=== PATIENT | female | born 1955 | race Caucasian/White ===

== ENCOUNTER 2022-04-05 11:25 | Inpatient (IN) | payer MEDICARE, OTHER ==
[2022-04-05 13:47] LABS: VENOUS BASE EXCESS -4.2 mmol/L (-2-2); VENOUS PCO2 42.9 mmHg (38-52); VENOUS PH 7.323 (7.310-7.410)
[2022-04-05 13:51] LABS: BASO % 0.8 % (0-2.0); EOS % 1.2 % (0-4.5); HEMATOCRIT 41.9 % (32.4-45.2); HEMOGLOBIN 13.6 GM/dL (10.7-15.3); MCH 27.9 pg (25.7-33.7); MCHC 32.5 g/dl (32.0-36.0); MEAN CELL VOLUME 85.7 fl (80-96); MEAN PLT VOLUME 7.1 fl (7.5-11.1); MONO % 6.1 % (3.8-10.2); NEUT % 56.9 % (42.8-82.8); PLATELET COUNT 297 10^3/uL (134-434); RBC 4.89 M/mm3 (3.60-5.2); RDW 14.3 % (11.6-15.6); WHITE BLOOD COUNT 7.4 K/mm3 (4.0-10.0)
[2022-04-05 13:58] LABS: INR 0.97 (0.83-1.09); PROTHROMBIN TIME (PATIENT) 11.2 SEC (9.7-13.0)
[2022-04-05 14:01] LABS: ACTIVATED PTT 31.6 SECONDS (25.2-36.5)
[2022-04-05 14:18] LABS: LACTIC ACID 2.3 mmol/L (0.4-2.0)
[2022-04-05 14:28] LABS: ALBUMIN 3.8 g/dl (3.4-5.0)
[2022-04-05 14:29] LABS: BLOOD UREA NITROGEN 13.3 mg/dL (7-18); CALCIUM 9.5 mg/dL (8.5-10.1)
[2022-04-05 14:35] LABS: CREATININE 0.7 mg/dL (0.55-1.3)
[2022-04-05 14:37] LABS: BILIRUBIN,TOTAL 0.4 mg/dL (0.2-1); TOT PROT 7.5 g/dl (6.4-8.2)
[2022-04-05] MEDS ORDERED: LACTATED RINGERS SOLUTION 1000 ML INFUS.BAG IV ONE (14:43)
[2022-04-05 16:30] LABS: EPI CELLS >36 /uL (0-25.1); HYALINE CASTS 6 /uL (0-3.1); PH,URINE 5.5 (5.0-8.0); URINE APPEARANCE CLEAR; URINE BACTERIA 32 /uL (0-1359); URINE BILIRUBIN NEGATIVE (NEGATIVE); URINE COLOR YELLOW; URINE GLUCOSE (UA) 3+ (NEGATIVE); URINE KETONE NEGATIVE (NEGATIVE); URINE LEUK ESTERASE 1+ (NEGATIVE); URINE NITRITE NEGATIVE (NEGATIVE); URINE PROTEIN NEGATIVE (NEGATIVE); URINE RBC 16 /uL (0-23.9); URINE UROBILINOGEN 0.2 mg/dL (0.2-1.0); URINE WBC 331 /uL (0-25.8)
[2022-04-05] MEDS ORDERED: ACETAMINOPHEN 325 MG TABLET (FP) PO PRN (16:58)
[2022-04-05] MEDS ORDERED: CEFTRIAXONE 1 GM/50 ML BAG ONE (17:44)
[2022-04-05] MEDS: CEFTRIAXONE 1 GM in DEXTROSE 5%-WATER - 50 ML IVPB SCH (17:59)
[2022-04-05] MEDS ORDERED: PATIENT'S OWN MEDICATION (NON-FORMULARY) (Glyburide/Metformin Hcl [Glucovance 5-500 Mg Tab PO SCH (22:00)
[2022-04-05] MEDS: INSULIN SLIDING SCALE (NOVOLOG) 1 VIAL SQ SCH (22:30)
[2022-04-05] MEDS ORDERED: ATORVASTATIN CA 20 MG TABLET (FP) ONE (22:33)
[2022-04-05] MEDS ORDERED: HEPARIN NA (PORCINE) 5,000 UNITS/ML 1ML VIAL ONE (22:34)
[2022-04-05] MEDS: HEPARIN NA (PORCINE) 5,000 UNITS/ML 1ML VIAL SQ SCH (22:41)
[2022-04-05] MEDS: ATORVASTATIN CA 20 MG TABLET (FP) PO SCH (22:42)
[2022-04-06] MEDS: metFORMIN HCL 500 MG TABLET (FP) PO SCH ×2 (06:31→16:36)
[2022-04-06] MEDS: glyBURIDE 5 MG TABLET PO SCH ×2 (06:31→16:36)
[2022-04-06] MEDS: INSULIN SLIDING SCALE (NOVOLOG) 1 VIAL SQ SCH ×4 (06:36→22:21)
[2022-04-06 09:17] LABS: BASO % 0.9 % (0-2.0); EOS % 2.6 % (0-4.5); HEMATOCRIT 40.9 % (32.4-45.2); HEMOGLOBIN 13.8 GM/dL (10.7-15.3); MCH 28.7 pg (25.7-33.7); MCHC 33.7 g/dl (32.0-36.0); MEAN CELL VOLUME 85.1 fl (80-96); MEAN PLT VOLUME 7.1 fl (7.5-11.1); MONO % 7.2 % (3.8-10.2); NEUT % 50.3 % (42.8-82.8); PLATELET COUNT 305 10^3/uL (134-434); RDW 14.2 % (11.6-15.6); WHITE BLOOD COUNT 6.8 K/mm3 (4.0-10.0)
[2022-04-06] MEDS: CEFTRIAXONE 1 GM in DEXTROSE 5%-WATER - 50 ML IVPB SCH (09:22)
[2022-04-06] MEDS: HEPARIN NA (PORCINE) 5,000 UNITS/ML 1ML VIAL SQ SCH ×2 (09:22→22:21)
[2022-04-06] MEDS: LISINOPRIL 20 MG TABLET PO SCH (09:22)
[2022-04-06] MEDS: PANTOPRAZOLE 40 MG TABLET PO SCH (09:22)
[2022-04-06] MEDS: MULTIVITAMINS THER W-MINERALS COMBO TABLET (FP) PO SCH (09:22)
[2022-04-06 09:34] LABS: BLOOD UREA NITROGEN 6.5 mg/dL (7-18); CALCIUM 9.4 mg/dL (8.5-10.1)
[2022-04-06 09:37] LABS: ALBUMIN 3.9 g/dl (3.4-5.0); CREATININE 0.5 mg/dL (0.55-1.3)
[2022-04-06 09:39] LABS: BILIRUBIN,TOTAL 0.5 mg/dL (0.2-1); TOT PROT 7.8 g/dl (6.4-8.2)
[2022-04-06] MEDS: CALCIUM 250MG/VIT-D 125 UNITS 1 COMBO TABLET PO SCH (10:21)
[2022-04-06] MEDS: MEGESTROL ACETATE 400 MG/10 ML UNIT DOSE CUP PO SCH (12:36)
[2022-04-06 13:24] VITALS: BMI 17.9
[2022-04-06] MEDS: ATORVASTATIN CA 20 MG TABLET (FP) PO SCH (22:21)
[2022-04-07] MEDS: INSULIN SLIDING SCALE (NOVOLOG) 1 VIAL SQ SCH ×4 (08:03→23:25)
[2022-04-07] MEDS: glyBURIDE 5 MG TABLET PO SCH ×2 (08:24→16:32)
[2022-04-07] MEDS: metFORMIN HCL 500 MG TABLET (FP) PO SCH ×2 (08:24→16:32)
[2022-04-07] MEDS ORDERED: DEXTROSE 50%-WATER 25 GM/50 ML DISP.SYRIN IVPUSH ONE (09:30)
[2022-04-07] MEDS: CEFTRIAXONE 1 GM in DEXTROSE 5%-WATER - 50 ML IVPB SCH (09:59)
[2022-04-07] MEDS: MEGESTROL ACETATE 400 MG/10 ML UNIT DOSE CUP PO SCH (09:59)
[2022-04-07] MEDS: MULTIVITAMINS THER W-MINERALS COMBO TABLET (FP) PO SCH (09:59)
[2022-04-07] MEDS: ASPIRIN 81 MG CHEWABLE TABLETS PO SCH (09:59)
[2022-04-07] MEDS: HEPARIN NA (PORCINE) 5,000 UNITS/ML 1ML VIAL SQ SCH ×2 (09:59→23:24)
[2022-04-07] MEDS: LISINOPRIL 20 MG TABLET PO SCH (10:05)
[2022-04-07] MEDS: PANTOPRAZOLE 40 MG TABLET PO SCH (10:06)
[2022-04-07] MEDS: CALCIUM 250MG/VIT-D 125 UNITS 1 COMBO TABLET PO SCH (10:09)
[2022-04-07] MEDS ORDERED: DEXTROSE 50%-WATER 25 GM/50 ML DISP.SYRIN IVPUSH PRN (12:45)
[2022-04-07] MEDS: AMINO ACIDS 4.25%/D5W 1,000 ML IV SCH ×2 (13:11→23:35)
[2022-04-07] MEDS: ATORVASTATIN CA 20 MG TABLET (FP) PO SCH (23:25)
[2022-04-08] MEDS: INSULIN SLIDING SCALE (NOVOLOG) 1 VIAL SQ SCH ×4 (06:02→21:30)
[2022-04-08] MEDS: metFORMIN HCL 500 MG TABLET (FP) PO SCH ×2 (06:02→16:25)
[2022-04-08] MEDS: glyBURIDE 5 MG TABLET PO SCH ×2 (06:02→16:25)
[2022-04-08] MEDS: ASPIRIN 81 MG CHEWABLE TABLETS PO SCH (09:49)
[2022-04-08] MEDS: CALCIUM 250MG/VIT-D 125 UNITS 1 COMBO TABLET PO SCH (09:50)
[2022-04-08] MEDS: HEPARIN NA (PORCINE) 5,000 UNITS/ML 1ML VIAL SQ SCH ×2 (09:50→21:29)
[2022-04-08] MEDS: PANTOPRAZOLE 40 MG TABLET PO SCH (09:50)
[2022-04-08] MEDS: MEGESTROL ACETATE 400 MG/10 ML UNIT DOSE CUP PO SCH (09:50)
[2022-04-08] MEDS: MULTIVITAMINS THER W-MINERALS COMBO TABLET (FP) PO SCH (09:50)
[2022-04-08] MEDS: LISINOPRIL 20 MG TABLET PO SCH (09:50)
[2022-04-08] MEDS: AMINO ACIDS 4.25%/D5W 1,000 ML IV SCH (11:28)
[2022-04-08] MEDS: CEFTRIAXONE 1 GM in DEXTROSE 5%-WATER - 50 ML IVPB SCH (11:33)
[2022-04-08] MEDS: ATORVASTATIN CA 20 MG TABLET (FP) PO SCH (21:30)
[2022-04-09] MEDS: AMINO ACIDS 4.25%/D5W 1,000 ML IV SCH ×3 (00:11→23:55)
[2022-04-09] MEDS: metFORMIN HCL 500 MG TABLET (FP) PO SCH ×2 (06:08→17:24)
[2022-04-09] MEDS: glyBURIDE 5 MG TABLET PO SCH ×2 (06:08→17:24)
[2022-04-09] MEDS: INSULIN SLIDING SCALE (NOVOLOG) 1 VIAL SQ SCH ×4 (06:08→23:54)
[2022-04-09] MEDS: ASPIRIN 81 MG CHEWABLE TABLETS PO SCH (09:38)
[2022-04-09] MEDS: CALCIUM 250MG/VIT-D 125 UNITS 1 COMBO TABLET PO SCH (09:38)
[2022-04-09] MEDS: PANTOPRAZOLE 40 MG TABLET PO SCH (09:38)
[2022-04-09] MEDS: LISINOPRIL 20 MG TABLET PO SCH (09:38)
[2022-04-09] MEDS: MULTIVITAMINS THER W-MINERALS COMBO TABLET (FP) PO SCH (09:38)
[2022-04-09] MEDS: CEFTRIAXONE 1 GM in DEXTROSE 5%-WATER - 50 ML IVPB SCH (09:38)
[2022-04-09] MEDS: HEPARIN NA (PORCINE) 5,000 UNITS/ML 1ML VIAL SQ SCH ×2 (09:38→22:05)
[2022-04-09] MEDS: MEGESTROL ACETATE 400 MG/10 ML UNIT DOSE CUP PO SCH (09:39)
[2022-04-09] MEDS ORDERED: MIRTAZAPINE 15 MG TABLET (FP) PO SCH (22:00)
[2022-04-09] MEDS: ATORVASTATIN CA 20 MG TABLET (FP) PO SCH (22:05)
[2022-04-10] MEDS: glyBURIDE 5 MG TABLET PO SCH ×2 (06:53→17:07)
[2022-04-10] MEDS: metFORMIN HCL 500 MG TABLET (FP) PO SCH ×2 (06:53→17:07)
[2022-04-10] MEDS: INSULIN SLIDING SCALE (NOVOLOG) 1 VIAL SQ SCH ×4 (06:56→21:34)
[2022-04-10] MEDS: HEPARIN NA (PORCINE) 5,000 UNITS/ML 1ML VIAL SQ SCH ×2 (09:31→21:34)
[2022-04-10] MEDS: LISINOPRIL 20 MG TABLET PO SCH (09:31)
[2022-04-10] MEDS: PANTOPRAZOLE 40 MG TABLET PO SCH (09:31)
[2022-04-10] MEDS: MEGESTROL ACETATE 400 MG/10 ML UNIT DOSE CUP PO SCH (09:31)
[2022-04-10] MEDS: ASPIRIN 81 MG CHEWABLE TABLETS PO SCH (09:32)
[2022-04-10] MEDS: MULTIVITAMINS THER W-MINERALS COMBO TABLET (FP) PO SCH (09:32)
[2022-04-10] MEDS: CALCIUM 250MG/VIT-D 125 UNITS 1 COMBO TABLET PO SCH (09:36)
[2022-04-10] MEDS: AMINO ACIDS 4.25%/D5W 1,000 ML IV SCH (14:04)
[2022-04-10] MEDS: ATORVASTATIN CA 20 MG TABLET (FP) PO SCH (21:33)
[2022-04-10] MEDS: MIRTAZAPINE 15 MG TABLET (FP) PO SCH (21:34)
[2022-04-10 22:04] LABS: N-TERMINAL BNP 35.8 pg/ml (5-125)
[2022-04-11] MEDS: AMINO ACIDS 4.25%/D5W 1,000 ML IV SCH ×4 (00:40→23:24)
[2022-04-11] MEDS: glyBURIDE 5 MG TABLET PO SCH ×2 (06:08→17:03)
[2022-04-11] MEDS: INSULIN SLIDING SCALE (NOVOLOG) 1 VIAL SQ SCH ×4 (06:08→21:56)
[2022-04-11] MEDS: metFORMIN HCL 500 MG TABLET (FP) PO SCH ×2 (06:08→17:03)
[2022-04-11] MEDS: MEGESTROL ACETATE 400 MG/10 ML UNIT DOSE CUP PO SCH (09:42)
[2022-04-11] MEDS: ASPIRIN 81 MG CHEWABLE TABLETS PO SCH (09:43)
[2022-04-11] MEDS: CALCIUM 250MG/VIT-D 125 UNITS 1 COMBO TABLET PO SCH (09:43)
[2022-04-11] MEDS: MULTIVITAMINS THER W-MINERALS COMBO TABLET (FP) PO SCH (09:43)
[2022-04-11] MEDS: PANTOPRAZOLE 40 MG TABLET PO SCH (09:43)
[2022-04-11] MEDS: LISINOPRIL 20 MG TABLET PO SCH (09:43)
[2022-04-11] MEDS: HEPARIN NA (PORCINE) 5,000 UNITS/ML 1ML VIAL SQ SCH ×2 (09:43→21:54)
[2022-04-11] MEDS: CEFTRIAXONE 1 GM in DEXTROSE 5%-WATER - 50 ML IVPB SCH (17:03)
[2022-04-11] MEDS: MIRTAZAPINE 15 MG TABLET (FP) PO SCH (21:54)
[2022-04-11] MEDS: ATORVASTATIN CA 20 MG TABLET (FP) PO SCH (21:54)
[2022-04-12] MEDS: AMINO ACIDS 4.25%/D5W 1,000 ML IV SCH ×2 (03:36→20:32)
[2022-04-12] MEDS: metFORMIN HCL 500 MG TABLET (FP) PO SCH ×2 (06:23→16:44)
[2022-04-12] MEDS: glyBURIDE 5 MG TABLET PO SCH ×2 (06:23→16:45)
[2022-04-12] MEDS: INSULIN SLIDING SCALE (NOVOLOG) 1 VIAL SQ SCH ×4 (06:24→21:11)
[2022-04-12 08:59] LABS: CALCIUM 9.1 mg/dL (8.5-10.1)
[2022-04-12 09:03] LABS: CREATININE 0.7 mg/dL (0.55-1.3)
[2022-04-12 09:09] LABS: BLOOD UREA NITROGEN 36.2 mg/dL (7-18)
[2022-04-12] MEDS: PANTOPRAZOLE 40 MG TABLET PO SCH (10:30)
[2022-04-12] MEDS: HEPARIN NA (PORCINE) 5,000 UNITS/ML 1ML VIAL SQ SCH ×2 (10:30→21:11)
[2022-04-12] MEDS: ASPIRIN 81 MG CHEWABLE TABLETS PO SCH (10:30)
[2022-04-12] MEDS: MULTIVITAMINS THER W-MINERALS COMBO TABLET (FP) PO SCH (10:30)
[2022-04-12] MEDS: MEGESTROL ACETATE 400 MG/10 ML UNIT DOSE CUP PO SCH (10:30)
[2022-04-12] MEDS: CEFTRIAXONE 1 GM in DEXTROSE 5%-WATER - 50 ML IVPB SCH (10:30)
[2022-04-12] MEDS: CALCIUM 250MG/VIT-D 125 UNITS 1 COMBO TABLET PO SCH (10:31)
[2022-04-12] MEDS: LISINOPRIL 20 MG TABLET PO SCH (10:31)
[2022-04-12] MEDS: LEVOTHYROXINE NA 75 MCG TABLET (FP) PO SCH (11:24)
[2022-04-12] MEDS: MIRTAZAPINE 15 MG TABLET (FP) PO SCH (21:10)
[2022-04-12] MEDS: ATORVASTATIN CA 20 MG TABLET (FP) PO SCH (21:10)
[2022-04-13] MEDS: LEVOTHYROXINE NA 75 MCG TABLET (FP) PO SCH (06:18)
[2022-04-13] MEDS: glyBURIDE 5 MG TABLET PO SCH ×2 (06:18→16:41)
[2022-04-13] MEDS: metFORMIN HCL 500 MG TABLET (FP) PO SCH ×2 (06:18→16:41)
[2022-04-13] MEDS: INSULIN SLIDING SCALE (NOVOLOG) 1 VIAL SQ SCH ×3 (06:40→16:37)
[2022-04-13] MEDS: LISINOPRIL 20 MG TABLET PO SCH ×2 (10:14→10:21)
[2022-04-13] MEDS: MEGESTROL ACETATE 400 MG/10 ML UNIT DOSE CUP PO SCH (10:14)
[2022-04-13] MEDS: MULTIVITAMINS THER W-MINERALS COMBO TABLET (FP) PO SCH (10:15)
[2022-04-13] MEDS: PANTOPRAZOLE 40 MG TABLET PO SCH (10:15)
[2022-04-13] MEDS: HEPARIN NA (PORCINE) 5,000 UNITS/ML 1ML VIAL SQ SCH (10:15)
[2022-04-13] MEDS: ASPIRIN 81 MG CHEWABLE TABLETS PO SCH (10:15)
[2022-04-13] MEDS: CALCIUM 250MG/VIT-D 125 UNITS 1 COMBO TABLET PO SCH (10:45)
[2022-04-13] MEDS ORDERED: DEXTROSE 50%-WATER 25 GM/50 ML DISP.SYRIN ONE (12:42)
[2022-04-13 14:20] VITALS: BP 116/57; PULSE 80; RESP 20; TEMP 97.5
== END 2022-04-13 19:20 | DRG 689 ==
LOC: JER 11:25 → JERBED 15:29 → J7W 04-06 01:00
PROVIDERS: ADMIT Internal Medicine; ATTEND Internal Medicine
DX: N39.0 Urinary tract infection, site not specified (principal); G93.41 Metabolic encephalopathy; Z68.1 Body mass index [BMI] 19.9 or less, adult; I69.351 Hemiplegia and hemiparesis following cerebral infarction affecting right dominant side; R64 Cachexia; E11.649 Type 2 diabetes mellitus with hypoglycemia without coma; R63.0 Anorexia; E03.9 Hypothyroidism, unspecified
CPT/HCPCS: 0241U-QW; 36415; 70450-TC; 70551-TC; 71045-TC-FY; 74176-TC; 80048; 80053; 80061; 80307; 81003; 82140; 82803; 82962; 83036; 83605; 83880; 84439; 84443; 84484; 85025; 85610; 85730; 87077; 87086; 93005; 93010; 93225; 93226; 93306-TC; 93880-TC; 97116-GP; 97162-GP; 99285-25; J1644

== ENCOUNTER 2022-08-28 15:25 | Inpatient (IN) | payer MEDICARE, OTHER ==
[2022-08-28] MEDS ORDERED: SODIUM CHLORIDE 0.9% 500 ML INFUS.BAG IV ONE (16:15)
[2022-08-28 16:55] LABS: BASO % 0.6 % (0-2.0); EOS % 0.3 % (0-4.5); HEMATOCRIT 42.1 % (32.4-45.2); HEMOGLOBIN 13.7 GM/dL (10.7-15.3); LYMPH % 22.3 % (8-40); MCH 27.7 pg (25.7-33.7); MCHC 32.7 g/dl (32.0-36.0); MEAN CELL VOLUME 84.9 fl (80-96); MONO % 4.6 % (3.8-10.2); NEUT % 72.2 % (42.8-82.8); PLATELET COUNT 186 10^3/uL (134-434); RBC 4.96 M/mm3 (3.60-5.2); RDW 14.4 % (11.6-15.6); WHITE BLOOD COUNT 8.6 K/mm3 (4.0-10.0)
[2022-08-28] MEDS ORDERED: SODIUM CHLORIDE 0.9% 1000 ML INFUS.BAG IV ONE (17:02)
[2022-08-28 17:04] LABS: VENOUS BASE EXCESS 0.1 mmol/L (-2-2); VENOUS PCO2 51.8 mmHg (38-52); VENOUS PH 7.334 (7.310-7.410)
[2022-08-28 17:13] LABS: CHLORIDE 96 mmol/L (98-107); POTASSIUM 5.3 mmol/L (3.5-5.1); SODIUM 132 mmol/L (136-145)
[2022-08-28 17:15] LABS: ALBUMIN 3.9 g/dl (3.4-5.0); ANION GAP 9 MMOL/L (8-16); BLOOD UREA NITROGEN 8.7 mg/dL (7-18); CALCIUM 10.1 mg/dL (8.5-10.1); CO2 27 mmol/L (21-32); MAGNESIUM 1.9 mg/dL (1.8-2.4)
[2022-08-28 17:16] LABS: PH,URINE 7.5 (5.0-8.0); URINE APPEARANCE CLEAR; URINE BILIRUBIN NEGATIVE (NEGATIVE); URINE COLOR YELLOW; URINE GLUCOSE (UA) 3+ (NEGATIVE); URINE KETONE 1+ (NEGATIVE); URINE LEUK ESTERASE NEGATIVE (NEGATIVE); URINE NITRITE NEGATIVE (NEGATIVE); URINE PROTEIN NEGATIVE (NEGATIVE); URINE UROBILINOGEN 0.2 mg/dL (0.2-1.0)
[2022-08-28 17:18] LABS: PHOSPHOROUS 3.6 mg/dL (2.5-4.9); SGOT/AST 22 U/L (15-37); SGPT/ALT 25 U/L (13-61)
[2022-08-28 17:20] LABS: BILIRUBIN,TOTAL 0.5 mg/dL (0.2-1); CREATININE 0.8 mg/dL (0.55-1.3); TOT PROT 8.2 g/dl (6.4-8.2)
[2022-08-28 17:21] LABS: ALK PHOS 105 U/L (45-117)
[2022-08-28 17:25] LABS: GLUCOSE,RANDOM 587 mg/dL (74-106)
[2022-08-28 19:26] LABS: CHLORIDE 101 mmol/L (98-107); POTASSIUM 4.6 mmol/L (3.5-5.1); SODIUM 136 mmol/L (136-145)
[2022-08-28 19:30] LABS: ANION GAP 11 MMOL/L (8-16); BLOOD UREA NITROGEN 6.2 mg/dL (7-18); CALCIUM 9.3 mg/dL (8.5-10.1); CO2 25 mmol/L (21-32)
[2022-08-28 19:33] LABS: CREATININE 0.7 mg/dL (0.55-1.3); GLUCOSE,RANDOM 441 mg/dL (74-106)
[2022-08-28] MEDS ORDERED: INSULIN REGULAR HUMAN 100 UNITS/ML *VIAL IVPUSH ONE (20:57)
[2022-08-28] MEDS ORDERED: MAGNESIUM CITRATE 300 ML BOTTLE PO ONE (21:01)
[2022-08-29] MEDS: INSULIN SLIDING SCALE (NOVOLOG) 1 VIAL SQ SCH ×4 (06:40→22:58)
[2022-08-29 08:01] VITALS: BMI 20.3
[2022-08-29] MEDS ORDERED: SODIUM CHLORIDE 250 ML IV ONE (08:52)
[2022-08-29] MEDS: SODIUM CHLORIDE 1,000 ML IV SCH (09:30)
[2022-08-29 09:54] LABS: BASO % 0.8 % (0-2.0); HEMATOCRIT 35.6 % (32.4-45.2); HEMOGLOBIN 11.7 GM/dL (10.7-15.3); LYMPH % 41.4 % (8-40); MCH 27.6 pg (25.7-33.7); MCHC 32.8 g/dl (32.0-36.0); MEAN CELL VOLUME 84.2 fl (80-96); MEAN PLT VOLUME 7.8 fl (7.5-11.1); MONO % 5.7 % (3.8-10.2); NEUT % 50.1 % (42.8-82.8); PLATELET COUNT 228 10^3/uL (134-434); RBC 4.23 M/mm3 (3.60-5.2); RDW 14.1 % (11.6-15.6); WHITE BLOOD COUNT 6.3 K/mm3 (4.0-10.0)
[2022-08-29 09:57] LABS: POTASSIUM 3.4 mmol/L (3.5-5.1)
[2022-08-29 09:58] LABS: BLOOD UREA NITROGEN 4.7 mg/dL (7-18); CALCIUM 8.6 mg/dL (8.5-10.1)
[2022-08-29 10:01] LABS: CREATININE 0.6 mg/dL (0.55-1.3)
[2022-08-29 10:03] LABS: BILIRUBIN,TOTAL 0.4 mg/dL (0.2-1)
[2022-08-29 10:09] LABS: TOT PROT 6.2 g/dl (6.4-8.2)
[2022-08-29] MEDS: CEFTRIAXONE 1 GM in DEXTROSE 5%-WATER - 50 ML IVPB SCH (12:24)
[2022-08-29] MEDS ORDERED: POTASSIUM CHLORIDE ORAL LIQUID 20 MEQ/15 ML PO ONE (14:45)
[2022-08-29] MEDS: metFORMIN HCL 500 MG TABLET (FP) PO SCH (17:24)
[2022-08-29] MEDS: ATORVASTATIN CA 20 MG TABLET (FP) PO SCH (22:58)
[2022-08-30] MEDS: metFORMIN HCL 500 MG TABLET (FP) PO SCH ×2 (06:21→17:04)
[2022-08-30] MEDS: INSULIN SLIDING SCALE (NOVOLOG) 1 VIAL SQ SCH ×4 (06:21→21:01)
[2022-08-30] MEDS: LEVOTHYROXINE NA 50 MCG TABLET (FP) PO SCH (06:21)
[2022-08-30] MEDS: sitaGLIPtin PHOSPHATE 50 MG TABLET PO SCH (06:21)
[2022-08-30 10:40] LABS: BASO % 1.1 % (0-2.0); EOS % 0.7 % (0-4.5); HEMOGLOBIN 13.9 GM/dL (10.7-15.3); LYMPH % 25.2 % (8-40); MCH 27.6 pg (25.7-33.7); MCHC 32.2 g/dl (32.0-36.0); MEAN CELL VOLUME 85.6 fl (80-96); MEAN PLT VOLUME 9.2 fl (7.5-11.1); MONO % 4.4 % (3.8-10.2); NEUT % 68.6 % (42.8-82.8); PLATELET COUNT 243 10^3/uL (134-434); RBC 5.03 M/mm3 (3.60-5.2); WHITE BLOOD COUNT 6.9 K/mm3 (4.0-10.0)
[2022-08-30 10:56] LABS: POTASSIUM 4.2 mmol/L (3.5-5.1)
[2022-08-30] MEDS: MULTIVITAMINS THER W-MINERALS COMBO TABLET (FP) PO SCH (10:56)
[2022-08-30] MEDS: PANTOPRAZOLE 40 MG TABLET PO SCH (10:56)
[2022-08-30] MEDS: CALCIUM 500MG/VIT-D 200 UNITS COMBO TABLET (FP) PO SCH (10:56)
[2022-08-30] MEDS: CEFTRIAXONE 1 GM in DEXTROSE 5%-WATER - 50 ML IVPB SCH (10:57)
[2022-08-30 11:00] LABS: ALBUMIN 3.4 g/dl (3.4-5.0); BLOOD UREA NITROGEN 6.6 mg/dL (7-18)
[2022-08-30 11:02] LABS: CALCIUM 9.2 mg/dL (8.5-10.1)
[2022-08-30 11:03] LABS: CREATININE 0.6 mg/dL (0.55-1.3)
[2022-08-30 11:04] LABS: BILIRUBIN,TOTAL 0.6 mg/dL (0.2-1); TOT PROT 6.8 g/dl (6.4-8.2)
[2022-08-30] MEDS: SODIUM CHLORIDE 1,000 ML IV SCH (11:15)
[2022-08-30] MEDS ORDERED: INSULIN (NOVOLOG) ASPART 100 UNITS/ML 10ML VIAL ONE (20:55)
[2022-08-30] MEDS: ATORVASTATIN CA 20 MG TABLET (FP) PO SCH (21:01)
[2022-08-31] MEDS: metFORMIN HCL 500 MG TABLET (FP) PO SCH ×2 (06:20→16:24)
[2022-08-31] MEDS: sitaGLIPtin PHOSPHATE 50 MG TABLET PO SCH (06:20)
[2022-08-31] MEDS: INSULIN SLIDING SCALE (NOVOLOG) 1 VIAL SQ SCH ×4 (06:20→21:51)
[2022-08-31] MEDS: LEVOTHYROXINE NA 50 MCG TABLET (FP) PO SCH (06:20)
[2022-08-31] MEDS: MULTIVITAMINS THER W-MINERALS COMBO TABLET (FP) PO SCH (09:52)
[2022-08-31] MEDS: PANTOPRAZOLE 40 MG TABLET PO SCH (09:52)
[2022-08-31] MEDS: CALCIUM 500MG/VIT-D 200 UNITS COMBO TABLET (FP) PO SCH (09:52)
[2022-08-31] MEDS: CEFTRIAXONE 1 GM in DEXTROSE 5%-WATER - 50 ML IVPB SCH (09:52)
[2022-08-31] MEDS ORDERED: sitaGLIPtin PHOSPHATE 50 MG TABLET PO ONE (11:45)
[2022-08-31] MEDS: SODIUM CHLORIDE 1,000 ML IV SCH ×2 (12:04→21:51)
[2022-08-31] MEDS: ATORVASTATIN CA 20 MG TABLET (FP) PO SCH (21:50)
[2022-09-01] MEDS: LEVOTHYROXINE NA 50 MCG TABLET (FP) PO SCH (06:13)
[2022-09-01] MEDS: metFORMIN HCL 500 MG TABLET (FP) PO SCH (06:13)
[2022-09-01] MEDS: INSULIN SLIDING SCALE (NOVOLOG) 1 VIAL SQ SCH ×2 (06:14→11:22)
[2022-09-01] MEDS ORDERED: sitaGLIPtin PHOSPHATE 50 MG TABLET PO SCH (07:00)
[2022-09-01] MEDS: MULTIVITAMINS THER W-MINERALS COMBO TABLET (FP) PO SCH (09:07)
[2022-09-01] MEDS: CALCIUM 500MG/VIT-D 200 UNITS COMBO TABLET (FP) PO SCH (09:07)
[2022-09-01] MEDS: CEFTRIAXONE 1 GM in DEXTROSE 5%-WATER - 50 ML IVPB SCH (09:07)
[2022-09-01] MEDS: PANTOPRAZOLE 40 MG TABLET PO SCH (09:07)
[2022-09-01 12:36] VITALS: BP 129/70; PULSE 72; RESP 20; TEMP 97.5
== END 2022-09-01 14:49 | disposition home or self-care (01) | DRG 638 ==
LOC: JER 15:25 → JERBED 22:27 → J6S 08-29 01:58
PROVIDERS: ADMIT Internal Medicine; ATTEND Internal Medicine
DX: E11.65 Type 2 diabetes mellitus with hyperglycemia (principal); N39.0 Urinary tract infection, site not specified; E03.9 Hypothyroidism, unspecified; Z86.73 Personal history of transient ischemic attack (TIA), and cerebral infarction without residual deficits; F03.90 Unspecified dementia, unspecified severity, without behavioral disturbance, psychotic disturbance, mood disturbance, and anxiety; E78.5 Hyperlipidemia, unspecified; B95.1 Streptococcus, group B, as the cause of diseases classified elsewhere
CPT/HCPCS: 0241U-QW; 36415; 71046-TC-FY; 74177-TC; 76705-TC; 80048; 80053; 81003; 82010; 82803; 82962; 83036; 83605; 83735; 84100; 84443; 85025; 87077; 87086; 93005; 93010; 97116-GP; 97161-GP; 99285-25; Q9967

== ENCOUNTER 2023-07-15 10:07 | Inpatient (IN) | payer MEDICARE, OTHER ==
[2023-07-15 11:46] LABS: BASO % 0.3 % (0-2.0); EOS % 0.3 % (0-4.5); HEMATOCRIT 37.9 % (32.4-45.2); HEMOGLOBIN 12.5 GM/dL (10.7-15.3); MCH 28.3 pg (25.7-33.7); MCHC 33.1 g/dl (32.0-36.0); MEAN CELL VOLUME 85.7 fl (80-96); MEAN PLT VOLUME 7.9 fl (7.5-11.1); MONO % 4.2 % (3.8-10.2); NEUT % 85.2 % (42.8-82.8); PLATELET COUNT 248 10^3/uL (134-434); RBC 4.42 M/mm3 (3.60-5.2); RDW 14.1 % (11.6-15.6); WHITE BLOOD COUNT 12.3 K/mm3 (4.0-10.0)
[2023-07-15 11:50] LABS: INR 1.05 (0.83-1.09); PROTHROMBIN TIME (PATIENT) 11.8 SEC (9.7-13.0)
[2023-07-15 11:57] LABS: POTASSIUM 4.3 mmol/L (3.5-5.1)
[2023-07-15 11:59] LABS: CALCIUM 9.3 mg/dL (8.5-10.1)
[2023-07-15 12:00] LABS: ALBUMIN 3.6 g/dl (3.4-5.0); BLOOD UREA NITROGEN 20.7 mg/dL (7-18)
[2023-07-15 12:03] LABS: CREATININE 0.7 mg/dL (0.55-1.3)
[2023-07-15 12:04] LABS: BILIRUBIN,TOTAL 0.6 mg/dL (0.2-1)
[2023-07-15 12:05] LABS: TOT PROT 7.4 g/dl (6.4-8.2)
[2023-07-15 12:05] LABS: EPI CELLS 7 /uL (0-25.1); HYALINE CASTS 0 /uL (0-3.1); PH,URINE 6.5 (5.0-8.0); URINE APPEARANCE CLEAR; URINE BACTERIA 4607 /uL (0-1359); URINE BILIRUBIN NEGATIVE (NEGATIVE); URINE COLOR YELLOW; URINE GLUCOSE (UA) 2+ (NEGATIVE); URINE KETONE TRACE (NEGATIVE); URINE LEUK ESTERASE 1+ (NEGATIVE); URINE NITRITE NEGATIVE (NEGATIVE); URINE PROTEIN NEGATIVE (NEGATIVE); URINE RBC 9 /uL (0-23.9); URINE UROBILINOGEN 0.2 mg/dL (0.2-1.0); URINE WBC 33 /uL (0-25.8)
[2023-07-15] MEDS ORDERED: CEFTRIAXONE 1 GM/50 ML BAG ONE (12:39)
[2023-07-15] MEDS: CEFTRIAXONE 1,000 MG in DEXTROSE 5%-WATER - 50 ML IVPB ONE (12:46)
[2023-07-15] MEDS ORDERED: ACETAMINOPHEN 325 MG TABLET (FP) PO PRN (16:39)
[2023-07-15] MEDS: ATORVASTATIN CA 20 MG TABLET (FP) PO SCH (22:56)
[2023-07-16] MEDS: oxyCODONE HCL 5 MG TABLET PO PRN ×2 (01:28→16:36)
[2023-07-16] MEDS: LEVOTHYROXINE NA 50 MCG TABLET (FP) PO SCH (06:50)
[2023-07-16] MEDS: EMPAGLIFLOZIN (JARDIANCE) 25 MG TABLET PO SCH (06:50)
[2023-07-16] MEDS: metFORMIN HCL 500 MG TABLET (FP) PO SCH ×2 (06:50→16:36)
[2023-07-16] MEDS ORDERED: sitaGLIPtin PHOSPHATE 50 MG TABLET PO SCH (07:00)
[2023-07-16] MEDS: INSULIN (NOVOLOG) ASPART 100 UNITS/ML 10ML VIAL SQ SCH (07:44)
[2023-07-16] MEDS: CEFTRIAXONE 1 GM in DEXTROSE 5%-WATER - 50 ML IVPB SCH ×2 (09:28→18:43)
[2023-07-16] MEDS ORDERED: FENTANYL CITRATE/PF 50 MCG/ML VIAL ONE ×5 (09:34→13:24)
[2023-07-16] MEDS ORDERED: DEXAMETHASONE SOD PHOSPHATE 4 MG/1 ML VIAL ONE (09:34)
[2023-07-16] MEDS ORDERED: LIDOCAINE HCL/PF 2% SDV 5ML VIAL ONE (09:34)
[2023-07-16] MEDS ORDERED: PROPOFOL 20 ML ONE (09:34)
[2023-07-16] MEDS ORDERED: ONDANSETRON 4 MG/2 ML VIAL ONE (09:34)
[2023-07-16] MEDS ORDERED: ROCURONIUM BROMIDE 50 MG/5 ML SYRINGE ONE (09:35)
[2023-07-16] MEDS ORDERED: MIDAZOLAM HCL 2 MG/2 ML SINGLE DOSE VIAL ONE (09:35)
[2023-07-16] MEDS: ceFAZolin SODIUM 1 GM VIAL IVPB ONE (11:10)
[2023-07-16] MEDS ORDERED: SUGAMMADEX SODIUM 200 MG/2 ML VIAL ONE (12:38)
[2023-07-16] MEDS ORDERED: ACETAMINOPHEN 325 MG TABLET (FP) PO PRN (13:15)
[2023-07-16 13:47] LABS: BASO % 0.3 % (0-2.0); EOS % 0.3 % (0-4.5); HEMATOCRIT 30.8 % (32.4-45.2); HEMOGLOBIN 10.6 GM/dL (10.7-15.3); LYMPH % 11.2 % (8-40); MCH 29.4 pg (25.7-33.7); MCHC 34.3 g/dl (32.0-36.0); MEAN CELL VOLUME 85.6 fl (80-96); MEAN PLT VOLUME 9.1 fl (7.5-11.1); MONO % 6.4 % (3.8-10.2); NEUT % 81.8 % (42.8-82.8); PLATELET COUNT 168 10^3/uL (134-434); WHITE BLOOD COUNT 9.7 K/mm3 (4.0-10.0)
[2023-07-16 14:05] LABS: POTASSIUM 4.2 mmol/L (3.5-5.1)
[2023-07-16 14:08] LABS: ALBUMIN 3.2 g/dl (3.4-5.0)
[2023-07-16 14:11] LABS: CALCIUM 9.3 mg/dL (8.5-10.1); CREATININE 0.6 mg/dL (0.55-1.3)
[2023-07-16 14:12] LABS: BLOOD UREA NITROGEN 19.2 mg/dL (7-18)
[2023-07-16 14:13] LABS: BILIRUBIN,TOTAL 0.7 mg/dL (0.2-1); TOT PROT 6.7 g/dl (6.4-8.2)
[2023-07-16] MEDS: LACTATED RINGERS SOLUTION 1,000 ML IV SCH ×2 (14:32→14:33)
[2023-07-16 14:37] VITALS: BMI 21.8
[2023-07-16] MEDS: INSULIN ASPART SLIDING SCALE (NOVOLOG) 1 VIAL SQ SCH (16:48)
[2023-07-16] MEDS: ATORVASTATIN CA 20 MG TABLET (FP) PO SCH (21:38)
[2023-07-17] MEDS: LEVOTHYROXINE NA 50 MCG TABLET (FP) PO SCH (06:27)
[2023-07-17] MEDS: EMPAGLIFLOZIN (JARDIANCE) 25 MG TABLET PO SCH (06:28)
[2023-07-17 09:04] LABS: HEMATOCRIT 23.5 % (32.4-45.2); MCH 29.1 pg (25.7-33.7); MCHC 34.1 g/dl (32.0-36.0); MEAN CELL VOLUME 85.1 fl (80-96); MEAN PLT VOLUME 7.9 fl (7.5-11.1); PLATELET COUNT 154 10^3/uL (134-434); RBC 2.76 M/mm3 (3.60-5.2); RDW 13.8 % (11.6-15.6); WHITE BLOOD COUNT 8.6 K/mm3 (4.0-10.0)
[2023-07-17 09:25] LABS: POTASSIUM 3.9 mmol/L (3.5-5.1)
[2023-07-17 09:45] LABS: CALCIUM 8.5 mg/dL (8.5-10.1)
[2023-07-17 09:46] LABS: BLOOD UREA NITROGEN 20.7 mg/dL (7-18)
[2023-07-17 09:49] LABS: CREATININE 0.5 mg/dL (0.55-1.3)
[2023-07-17] MEDS ORDERED: CEFTRIAXONE 1 GM in DEXTROSE 5%-WATER - 50 ML IVPB SCH (10:00)
[2023-07-17] MEDS: ENOXAPARIN NA (PORCINE) 40 MG/0.4 ML DISP.SYRIN SQ SCH (10:00)
[2023-07-18 08:31] LABS: BASO % 0.3 % (0-2.0); HEMOGLOBIN 7.4 GM/dL (10.7-15.3); LYMPH % 14.8 % (8-40); MCHC 33.7 g/dl (32.0-36.0); MEAN CELL VOLUME 86.1 fl (80-96); MEAN PLT VOLUME 8.7 fl (7.5-11.1); NEUT % 78.9 % (42.8-82.8); PLATELET COUNT 164 10^3/uL (134-434); RBC 2.56 M/mm3 (3.60-5.2); RDW 13.9 % (11.6-15.6); WHITE BLOOD COUNT 10.7 K/mm3 (4.0-10.0)
[2023-07-18 08:51] LABS: POTASSIUM 3.9 mmol/L (3.5-5.1)
[2023-07-18 08:53] LABS: CALCIUM 8.4 mg/dL (8.5-10.1)
[2023-07-18 08:56] LABS: CREATININE 0.4 mg/dL (0.55-1.3)
[2023-07-18 08:58] LABS: BILIRUBIN,TOTAL 0.6 mg/dL (0.2-1); TOT PROT 5.7 g/dl (6.4-8.2)
[2023-07-18 09:01] LABS: ALBUMIN 2.4 g/dl (3.4-5.0)
[2023-07-19] MEDS ORDERED: ONDANSETRON 4 MG/2 ML VIAL IVPUSH PRN ×2 (07:30→08:49)
[2023-07-19] MEDS ORDERED: PROMETHAZINE HCL 25 MG/1 ML VIAL IVPB PRN ×2 (07:30→08:49)
[2023-07-19] MEDS ORDERED: PROPOFOL 20 ML ONE (07:46)
[2023-07-19] MEDS ORDERED: FENTANYL CITRATE/PF 50 MCG/ML VIAL ONE ×5 (07:46→09:33)
[2023-07-19] MEDS ORDERED: LIDOCAINE HCL/PF 2% SDV 5ML VIAL ONE (07:46)
[2023-07-19] MEDS ORDERED: KETOROLAC TROMETHAMINE 30 MG/1 ML VIAL ONE (08:04)
[2023-07-19] MEDS: LACTATED RINGERS SOLUTION 1,000 ML IV SCH ×2 (10:18→11:37)
[2023-07-19] MEDS: INSULIN ASPART SLIDING SCALE (NOVOLOG) 1 VIAL SQ SCH (11:57)
[2023-07-19] MEDS: ENOXAPARIN NA (PORCINE) 40 MG/0.4 ML DISP.SYRIN SQ SCH (12:00)
[2023-07-19] MEDS: LISINOPRIL 10 MG TABLET PO SCH (12:00)
[2023-07-19 12:55] LABS: BASO % 0.3 % (0-2.0); EOS % 0.1 % (0-4.5); HEMATOCRIT 31.3 % (32.4-45.2); HEMOGLOBIN 10.5 GM/dL (10.7-15.3); LYMPH % 11.4 % (8-40); MCH 29.6 pg (25.7-33.7); MCHC 33.5 g/dl (32.0-36.0); MEAN CELL VOLUME 88.3 fl (80-96); MEAN PLT VOLUME 8.2 fl (7.5-11.1); MONO % 5.4 % (3.8-10.2); NEUT % 82.8 % (42.8-82.8); PLATELET COUNT 213 10^3/uL (134-434); RBC 3.54 M/mm3 (3.60-5.2); RDW 14.1 % (11.6-15.6); WHITE BLOOD COUNT 10.5 K/mm3 (4.0-10.0)
[2023-07-19] MEDS: metFORMIN HCL 500 MG TABLET (FP) PO SCH (17:58)
[2023-07-19] MEDS: ATORVASTATIN CA 20 MG TABLET (FP) PO SCH (21:40)
[2023-07-19] MEDS ORDERED: ATORVASTATIN CA 20 MG TABLET (FP) PO SCH (22:00)
[2023-07-20] MEDS: oxyCODONE HCL 5 MG TABLET PO PRN (05:03)
[2023-07-20] MEDS: LEVOTHYROXINE NA 50 MCG TABLET (FP) PO SCH (06:29)
[2023-07-20] MEDS: EMPAGLIFLOZIN (JARDIANCE) 25 MG TABLET PO SCH (06:29)
[2023-07-21 09:40] LABS: BASO % 0.2 % (0-2.0); EOS % 3.3 % (0-4.5); HEMATOCRIT 27.5 % (32.4-45.2); HEMOGLOBIN 9.6 GM/dL (10.7-15.3); LYMPH % 16.4 % (8-40); MCH 29.9 pg (25.7-33.7); MCHC 34.7 g/dl (32.0-36.0); MEAN CELL VOLUME 86.1 fl (80-96); MEAN PLT VOLUME 7.6 fl (7.5-11.1); MONO % 8.2 % (3.8-10.2); NEUT % 71.9 % (42.8-82.8); PLATELET COUNT 259 10^3/uL (134-434); RDW 14.3 % (11.6-15.6); WHITE BLOOD COUNT 7.9 K/mm3 (4.0-10.0)
[2023-07-21 09:59] LABS: POTASSIUM 3.5 mmol/L (3.5-5.1)
[2023-07-21 10:11] LABS: CALCIUM 8.8 mg/dL (8.5-10.1)
[2023-07-21 10:12] LABS: ALBUMIN 2.2 g/dl (3.4-5.0); BLOOD UREA NITROGEN 11.1 mg/dL (7-18)
[2023-07-21 10:15] LABS: CREATININE 0.3 mg/dL (0.55-1.3)
[2023-07-21 10:16] LABS: BILIRUBIN,TOTAL 0.8 mg/dL (0.2-1); TOT PROT 5.8 g/dl (6.4-8.2)
[2023-07-23 10:23] LABS: BASO % 0.5 % (0-2.0); EOS % 0.6 % (0-4.5); HEMATOCRIT 31.2 % (32.4-45.2); HEMOGLOBIN 10.2 GM/dL (10.7-15.3); LYMPH % 11.3 % (8-40); MCH 28.8 pg (25.7-33.7); MCHC 32.6 g/dl (32.0-36.0); MEAN CELL VOLUME 88.4 fl (80-96); MEAN PLT VOLUME 7.4 fl (7.5-11.1); MONO % 5.9 % (3.8-10.2); NEUT % 81.7 % (42.8-82.8); PLATELET COUNT 387 10^3/uL (134-434); RBC 3.53 M/mm3 (3.60-5.2); RDW 14.2 % (11.6-15.6); WHITE BLOOD COUNT 12.4 K/mm3 (4.0-10.0)
[2023-07-23 10:40] LABS: POTASSIUM 3.5 mmol/L (3.5-5.1)
[2023-07-23 10:42] LABS: ALBUMIN 2.3 g/dl (3.4-5.0); CALCIUM 8.8 mg/dL (8.5-10.1)
[2023-07-23 10:43] LABS: BLOOD UREA NITROGEN 10.8 mg/dL (7-18)
[2023-07-23 10:45] LABS: CREATININE 0.3 mg/dL (0.55-1.3)
[2023-07-23 10:47] LABS: BILIRUBIN,TOTAL 0.9 mg/dL (0.2-1); TOT PROT 6.1 g/dl (6.4-8.2)
[2023-07-24] MEDS: ACETAMINOPHEN 325 MG TABLET (FP) PO PRN (14:48)
[2023-07-24] MEDS ORDERED: ACETAMINOPHEN 1000 MG/100 ML BAG IVPB PRN (16:14)
[2023-07-25] MEDS: hydrALAZINE HCL 20 MG/ML VIAL IVPB SCH (10:50)
[2023-07-25] MEDS: AMINO ACIDS 4.25%/D5W 1,000 ML IV SCH (12:17)
[2023-07-25] MEDS: FUROSEMIDE 40 MG/4 ML INJECTABLE VIAL IVPUSH ONE (14:22)
[2023-07-25] MEDS: SILVER SULFADIAZINE 1% TOP CREAM 400 GM JAR TP SCH (14:23)
[2023-07-25] MEDS: AMPICILLIN NA/SULBACTAM NA 3 GM in SODIUM CHLORIDE 100 ML IVPB SCH (15:45)
[2023-07-25] MEDS: ALBUTEROL SO4 2.5/IPRATROPIUM 0.5 INH SOL 3 ML VIAL.NEB. NEB PRN (17:55)
[2023-07-26] MEDS ORDERED: SUCCINYLCHOLINE CHLORIDE 200 MG/10 ML SYRINGE ONE (00:28)
[2023-07-26] MEDS ORDERED: ETOMIDATE 20 MG/10 ML VIAL IVPUSH ONE (00:28)
[2023-07-26] MEDS ORDERED: ALBUTEROL SO4 2.5/IPRATROPIUM 0.5 INH SOL 3 ML VIAL.NEB. NEB PRN (00:58)
[2023-07-26] MEDS: MUPIROCIN 2% TOPICAL OINTMENT FOR DECOLONIZATION NS SCH (01:00)
[2023-07-26] MEDS: SODIUM CHLORIDE 1,000 ML IV STA ×4 (01:47→09:28)
[2023-07-26 01:49] LABS: HEMATOCRIT 29.9 % (32.4-45.2); HEMOGLOBIN 9.5 GM/dL (10.7-15.3); MCH 28.8 pg (25.7-33.7); MCHC 31.9 g/dl (32.0-36.0); MEAN CELL VOLUME 90.5 fl (80-96); MEAN PLT VOLUME 7.1 fl (7.5-11.1); PLATELET COUNT 640 10^3/uL (134-434); RBC 3.31 M/mm3 (3.60-5.2); RDW 15.7 % (11.6-15.6)
[2023-07-26 01:51] LABS: ARTERIAL BLD GAS O2 SATURATION 98.1 % (95-98); ARTERIAL BLOOD GAS BASE EXCESS -25.2 mmol/L (-2-2); ARTERIAL BLOOD GAS PO2 168.8 mmHg (80-100)
[2023-07-26 01:57] LABS: ALLENS TEST POSITIVE
[2023-07-26 01:58] LABS: VENT MODE V-A/C; VENT RATE 16
[2023-07-26 02:00] LABS: INR 1.03 (0.83-1.09); PROTHROMBIN TIME (PATIENT) 11.8 SEC (9.7-13.0)
[2023-07-26 02:00] LABS: ARTERIAL BLOOD GAS pH 6.952 (7.350-7.450)
[2023-07-26] MEDS: SODIUM BICARBONATE 8.4% 50 MEQ/50 ML DISP.SYRIN IVPUSH ONE ×5 (02:05→09:15)
[2023-07-26 02:08] LABS: BLOOD UREA NITROGEN 24.2 mg/dL (7-18); CALCIUM 9.3 mg/dL (8.5-10.1); POTASSIUM 3.5 mmol/L (3.5-5.1)
[2023-07-26] MEDS ORDERED: AMPICILLIN NA/SULBACTAM NA 3 GM in SODIUM CHLORIDE 100 ML IVPB SCH (03:00)
[2023-07-26] MEDS: NOREPINEPHRINE BITARTRATE/D5W 8 MG/250 ML BAG IVPB SCH (03:07)
[2023-07-26 03:23] LABS: ANISOCYTOSIS 1+; MACROCYTOSIS 1+
[2023-07-26] MEDS: VANCOMYCIN/WATER FOR INJ (PEG) 1,000 MG/200 ML BAG IVPB ONE (04:10)
[2023-07-26 05:15] LABS: ARTERIAL BLD GAS O2 SATURATION 92.2 % (95-98); ARTERIAL BLOOD GAS BASE EXCESS -22.7 mmol/L (-2-2); ARTERIAL BLOOD GAS PO2 87.9 mmHg (80-100)
[2023-07-26 05:17] LABS: VENT MODE V-A/C; VENT RATE 16
[2023-07-26 05:19] LABS: ARTERIAL BLOOD GAS pH 7.039 (7.350-7.450)
[2023-07-26 06:58] LABS: HEMATOCRIT 32.5 % (32.4-45.2); HEMOGLOBIN 10.3 GM/dL (10.7-15.3); MCH 29.3 pg (25.7-33.7); MCHC 31.9 g/dl (32.0-36.0); MEAN CELL VOLUME 91.9 fl (80-96); MEAN PLT VOLUME 7.4 fl (7.5-11.1); PLATELET COUNT 675 10^3/uL (134-434); RBC 3.53 M/mm3 (3.60-5.2); RDW 15.5 % (11.6-15.6)
[2023-07-26] MEDS ORDERED: INSULIN ASPART SLIDING SCALE (NOVOLOG) 1 VIAL SQ SCH (07:00)
[2023-07-26 07:26] LABS: WHITE BLOOD COUNT 32.3 K/mm3 (4.0-10.0)
[2023-07-26 07:28] LABS: POTASSIUM 3.5 mmol/L (3.5-5.1)
[2023-07-26 07:37] LABS: ALBUMIN 2.4 g/dl (3.4-5.0); BLOOD UREA NITROGEN 26.2 mg/dL (7-18); CALCIUM 9.1 mg/dL (8.5-10.1); MAGNESIUM 2.2 mg/dL (1.8-2.4)
[2023-07-26 07:39] LABS: PHOSPHOROUS 4.2 mg/dL (2.5-4.9)
[2023-07-26 07:40] LABS: CREATININE 1.1 mg/dL (0.55-1.3)
[2023-07-26 07:41] LABS: BILIRUBIN,TOTAL 0.8 mg/dL (0.2-1); TOT PROT 6.9 g/dl (6.4-8.2)
[2023-07-26] MEDS: INSULIN REGULAR 100 UNITS in SODIUM CHLORIDE 99 ML IVPB SCH (08:18)
[2023-07-26] MEDS: SODIUM BICARBONATE 8.4% - 150 MEQ in DEXTROSE 5%-WATER - 950 ML IVPB SCH (08:18)
[2023-07-26] MEDS: VASopressin 40 UNITS/100 ML BAG IV SCH (08:25)
[2023-07-26] MEDS: LEVOTHYROXINE SODIUM 100 MCG 5 ML VIAL IVPUSH SCH ×2 (08:25→09:27)
[2023-07-26] MEDS: KCL 20 MEQ PREMIX BAG 20 MEQ/100 ML INFUS.BAG IVPB ONE (08:25)
[2023-07-26] MEDS: INSULIN REGULAR HUMAN 100 UNITS/ML *VIAL* (FOR IVP) IVPUSH ONE (08:28)
[2023-07-26 08:41] LABS: EPI CELLS 9 /uL (0-25.1); HYALINE CASTS 1 /uL (0-3.1); PH,URINE 5.5 (5.0-8.0); URINE APPEARANCE CLEAR; URINE BACTERIA 2 /uL (0-1359); URINE BILIRUBIN NEGATIVE (NEGATIVE); URINE COLOR YELLOW; URINE GLUCOSE (UA) 2+ (NEGATIVE); URINE KETONE 3+ (NEGATIVE); URINE LEUK ESTERASE NEGATIVE (NEGATIVE); URINE NITRITE NEGATIVE (NEGATIVE); URINE PROTEIN 1+ (NEGATIVE); URINE RBC 95 /uL (0-23.9); URINE UROBILINOGEN 0.2 mg/dL (0.2-1.0); URINE WBC 4 /uL (0-25.8)
[2023-07-26] MEDS: PIPERACILLIN/TAZOB 3.375 GM 3.375 GM in DEXTROSE 5%-WATER - 50 ML IVPB SCH ×2 (09:16→17:01)
[2023-07-26] MEDS: PANTOPRAZOLE SODIUM 40 MG VIAL IVPUSH SCH (09:16)
[2023-07-26] MEDS: ENOXAPARIN NA (PORCINE) 40 MG/0.4 ML DISP.SYRIN SQ SCH (09:16)
[2023-07-26] MEDS: SILVER SULFADIAZINE 1% TOP CREAM 400 GM JAR TP SCH (09:17)
[2023-07-26] MEDS ORDERED: MUPIROCIN 2% TOPICAL OINTMENT FOR DECOLONIZATION NS SCH (10:00)
[2023-07-26] MEDS ORDERED: hydrALAZINE HCL 20 MG/ML VIAL IVPB SCH (10:00)
[2023-07-26] MEDS: AMINO ACIDS 4.25%/D5W 1,000 ML IV SCH (12:09)
[2023-07-26] MEDS: HYDROCORTISONE SOD SUCCINATE 100 MG/2 ML VIAL IVPB SCH (12:12)
[2023-07-26 12:17] LABS: CHLORIDE 121 mmol/L (98-107); SODIUM 158 mmol/L (136-145)
[2023-07-26 12:20] LABS: CALCIUM 8.7 mg/dL (8.5-10.1)
[2023-07-26 12:21] LABS: ALBUMIN 2.2 g/dl (3.4-5.0); BLOOD UREA NITROGEN 26.8 mg/dL (7-18); CO2 16 mmol/L (21-32); GLUCOSE,RANDOM 301 mg/dL (74-106)
[2023-07-26 12:24] LABS: CREATININE 1.2 mg/dL (0.55-1.3); SGOT/AST 19 U/L (15-37); SGPT/ALT 15 U/L (13-61)
[2023-07-26 12:25] LABS: BILIRUBIN,TOTAL 0.7 mg/dL (0.2-1)
[2023-07-26 12:26] LABS: TOT PROT 6.6 g/dl (6.4-8.2)
[2023-07-26 12:27] LABS: ALK PHOS 135 U/L (45-117)
[2023-07-26 12:40] LABS: CREATININE, URINE RANDOM < 13.0 mg/dL (30-150)
[2023-07-26 13:32] LABS: ANION GAP 21 mmol/L (4-13); POTASSIUM 2.2 mmol/L (3.5-5.1)
[2023-07-26] MEDS: KCL 20 MEQ PREMIX BAG 20 MEQ/100 ML INFUS.BAG IVPB SCH (14:59)
[2023-07-26] MEDS: SODIUM CHLORIDE 0.45%/POT 20 MEQ/1,000 ML INFUS.BAG IV SCH (15:08)
[2023-07-26] MEDS: [UNRECOGNIZED DRUG - OTHER] IVPB SCH (15:14)
[2023-07-26] MEDS: SODIUM BICARBONATE 8.4% - 75 MEQ in DEXTROSE 5%-WATER - 950 ML IVPB SCH ×2 (15:14→15:15)
[2023-07-26] MEDS: SODIUM BICARBONATE IVPB SCH (15:14)
[2023-07-26] MEDS: POTASSIUM CHLORIDE IVPB SCH (15:14)
[2023-07-26] MEDS: POTASSIUM CHLORIDE ORAL LIQUID 20 MEQ/15 ML PO ONE (16:23)
[2023-07-26] MEDS ORDERED: INSULIN (LEVEMIR) 100 UNITS/ML UNITS SQ SCH ×2 (17:33→22:00)
[2023-07-26] MEDS: INSULIN (LEVEMIR) 100 UNITS/ML UNITS SQ ONE (17:41)
[2023-07-26] MEDS ORDERED: INSULIN (LEVEMIR) 100 UNITS/ML UNITS SQ ONE (17:41)
[2023-07-26 19:16] LABS: ARTERIAL BLD GAS O2 SATURATION 99.5 % (95-98); ARTERIAL BLOOD GAS BASE EXCESS 1.4 mmol/L (-2-2); ARTERIAL BLOOD GAS PO2 208.7 mmHg (80-100); ARTERIAL BLOOD GAS pH 7.487 (7.350-7.450)
[2023-07-26 19:23] LABS: ALLENS TEST POSITIVE
[2023-07-26 19:24] LABS: VENT MODE V-AC; VENT RATE 20
[2023-07-26] MEDS: ATORVASTATIN CA 20 MG TABLET (FP) PO SCH (21:37)
[2023-07-26] MEDS: CHLORHEXIDINE GLUCONATE 4% CLEANSER FOR DECOLONIZATION TP SCH (21:39)
[2023-07-26 21:56] LABS: POTASSIUM 4.4 mmol/L (3.5-5.1)
[2023-07-26 21:58] LABS: CALCIUM 8.7 mg/dL (8.5-10.1)
[2023-07-26] MEDS ORDERED: CHLORHEXIDINE GLUCONATE 4% CLEANSER FOR DECOLONIZATION TP SCH (22:00)
[2023-07-26 22:02] LABS: CREATININE 1.1 mg/dL (0.55-1.3)
[2023-07-26 22:04] LABS: TOT PROT 6.1 g/dl (6.4-8.2)
[2023-07-26 22:12] LABS: BILIRUBIN,TOTAL 0.6 mg/dL (0.2-1)
[2023-07-27] MEDS ORDERED: DEXTROSE 50%-WATER 25 GM/50 ML DISP.SYRIN ONE (03:06)
[2023-07-27] MEDS: DEXTROSE 50%-WATER - 25 GM/50 ML VIAL IVPUSH ONE (03:10)
[2023-07-27] MEDS: INSULIN (LEVEMIR) 100 UNITS/ML UNITS SQ SCH ×2 (05:59→21:25)
[2023-07-27] MEDS: INSULIN ASPART SLIDING SCALE (NOVOLOG) 1 VIAL SQ SCH (06:00)
[2023-07-27 06:39] LABS: BASO % 1.4 % (0-2.0); HEMOGLOBIN 8.5 GM/dL (10.7-15.3); LYMPH % 6.6 % (8-40); MCH 29.2 pg (25.7-33.7); MCHC 34.1 g/dl (32.0-36.0); MEAN PLT VOLUME 7.2 fl (7.5-11.1); MONO % 3.1 % (3.8-10.2); NEUT % 88.9 % (42.8-82.8); PLATELET COUNT 520 10^3/uL (134-434); RBC 2.92 M/mm3 (3.60-5.2); RDW 15.3 % (11.6-15.6); WHITE BLOOD COUNT 18.9 K/mm3 (4.0-10.0)
[2023-07-27 06:56] LABS: CHLORIDE 123 mmol/L (98-107); SODIUM 154 mmol/L (136-145)
[2023-07-27] MEDS ORDERED: INSULIN ASPART SLIDING SCALE (NOVOLOG) 1 VIAL SQ SCH (07:00)
[2023-07-27 07:02] LABS: ALBUMIN 1.9 g/dl (3.4-5.0); ANION GAP 2 mmol/L (4-13); CALCIUM 8.6 mg/dL (8.5-10.1); CO2 30 mmol/L (21-32); GLUCOSE,RANDOM 77 mg/dL (74-106); MAGNESIUM 1.7 mg/dL (1.8-2.4)
[2023-07-27 07:06] LABS: CREATININE 0.9 mg/dL (0.55-1.3); SGOT/AST 21 U/L (15-37); SGPT/ALT 11 U/L (13-61)
[2023-07-27 07:07] LABS: BILIRUBIN,TOTAL 0.5 mg/dL (0.2-1); TOT PROT 5.7 g/dl (6.4-8.2)
[2023-07-27 07:08] LABS: ALK PHOS 101 U/L (45-117)
[2023-07-27 07:18] LABS: PHOSPHOROUS 0.8 mg/dL (2.5-4.9)
[2023-07-27] MEDS: MAGNESIUM 1GM/D5W - 1 GM/100 ML IVPB IVPB ONE (07:49)
[2023-07-27 07:58] LABS: MEAN CELL VOLUME 85.5 fl (80-96)
[2023-07-27] MEDS: POTASSIUM PHOSPHATE 30 MM in DEXTROSE 5%-WATER - 250 ML IVPB ONE (09:22)
[2023-07-27] MEDS: HYDROCORTISONE SOD SUCCINATE 100 MG/2 ML VIAL IVPB SCH (10:22)
[2023-07-27 21:07] LABS: CALCIUM 7.9 mg/dL (8.5-10.1); POTASSIUM 3.9 mmol/L (3.5-5.1)
[2023-07-27 21:09] LABS: BLOOD UREA NITROGEN 14.9 mg/dL (7-18)
[2023-07-27 21:12] LABS: CREATININE 0.6 mg/dL (0.55-1.3); PHOSPHOROUS 2.9 mg/dL (2.5-4.9)
[2023-07-27] MEDS ORDERED: INSULIN (LEVEMIR) 100 UNITS/ML UNITS SQ SCH (22:00)
[2023-07-28] MEDS: ACETAMINOPHEN 1000 MG/100 ML BAG IVPB PRN (05:09)
[2023-07-28 06:00] LABS: HEMATOCRIT 23.2 % (32.4-45.2); MCH 29.4 pg (25.7-33.7); MCHC 34.2 g/dl (32.0-36.0); PLATELET COUNT 409 10^3/uL (134-434); RDW 15.4 % (11.6-15.6); WHITE BLOOD COUNT 14.8 K/mm3 (4.0-10.0)
[2023-07-28 06:17] LABS: POTASSIUM 3.4 mmol/L (3.5-5.1)
[2023-07-28 06:22] LABS: ALBUMIN 1.7 g/dl (3.4-5.0); BLOOD UREA NITROGEN 14.2 mg/dL (7-18)
[2023-07-28 06:25] LABS: CREATININE 0.5 mg/dL (0.55-1.3); PHOSPHOROUS 2.3 mg/dL (2.5-4.9)
[2023-07-28 06:26] LABS: BILIRUBIN,TOTAL 0.5 mg/dL (0.2-1); TOT PROT 5.2 g/dl (6.4-8.2)
[2023-07-28] MEDS: POTASSIUM PHOSPHATE 15 MM in DEXTROSE 5%-WATER - 250 ML IVPB ONE (09:39)
[2023-07-28] MEDS: SODIUM CHLORIDE 0.45%/POT 20 MEQ/1,000 ML INFUS.BAG IV SCH ×2 (12:30→17:09)
[2023-07-28] MEDS ORDERED: SODIUM CHLORIDE 0.45%/POT 20 MEQ/1,000 ML INFUS.BAG IV SCH (15:52)
[2023-07-28] MEDS: INSULIN ASPART SLIDING SCALE (NOVOLOG) 1 VIAL SQ SCH (17:09)
[2023-07-28] MEDS: PIPERACILLIN/TAZOB 3.375 GM 3.375 GM in DEXTROSE 5%-WATER - 50 ML IVPB SCH (17:38)
[2023-07-28] MEDS: D5-1/2NS+20 MEQ KCL - 20 MEQ/1,000 ML INFUS.BAG IV SCH (18:59)
[2023-07-28] MEDS: ATORVASTATIN CA 40 MG TABLET (FP) PO SCH (21:15)
[2023-07-28] MEDS: INSULIN (LEVEMIR) 100 UNITS/ML UNITS SQ SCH (21:33)
[2023-07-29] MEDS: LEVOTHYROXINE SODIUM 100 MCG 5 ML VIAL IVPUSH SCH (06:09)
[2023-07-29 09:41] LABS: HEMATOCRIT 29.2 % (32.4-45.2); HEMOGLOBIN 9.8 GM/dL (10.7-15.3); MCH 28.9 pg (25.7-33.7); MCHC 33.7 g/dl (32.0-36.0); MEAN CELL VOLUME 85.7 fl (80-96); PLATELET COUNT 485 10^3/uL (134-434); RDW 15.3 % (11.6-15.6); WHITE BLOOD COUNT 9.1 K/mm3 (4.0-10.0)
[2023-07-29 10:09] LABS: POTASSIUM 3.3 mmol/L (3.5-5.1)
[2023-07-29 10:11] LABS: CALCIUM 8.4 mg/dL (8.5-10.1)
[2023-07-29 10:15] LABS: CREATININE 0.4 mg/dL (0.55-1.3); PHOSPHOROUS 2.2 mg/dL (2.5-4.9)
[2023-07-29] MEDS: ENOXAPARIN NA (PORCINE) 40 MG/0.4 ML DISP.SYRIN SQ SCH (10:15)
[2023-07-29] MEDS: PANTOPRAZOLE SODIUM 40 MG VIAL IVPUSH SCH (10:15)
[2023-07-29 10:17] LABS: BILIRUBIN,TOTAL 0.6 mg/dL (0.2-1); TOT PROT 6.1 g/dl (6.4-8.2)
[2023-07-29] MEDS: POTASSIUM PHOSPHATE 30 MM in SODIUM CHLORIDE 500 ML IVPB ONE (19:06)
[2023-07-30 09:19] LABS: POTASSIUM 3.2 mmol/L (3.5-5.1)
[2023-07-30 09:26] LABS: ALBUMIN 1.9 g/dl (3.4-5.0); BLOOD UREA NITROGEN 12.9 mg/dL (7-18); CALCIUM 7.9 mg/dL (8.5-10.1)
[2023-07-30 09:29] LABS: CREATININE 0.4 mg/dL (0.55-1.3); PHOSPHOROUS 3.8 mg/dL (2.5-4.9); TOT PROT 5.8 g/dl (6.4-8.2)
[2023-07-30 09:31] LABS: BILIRUBIN,TOTAL 0.7 mg/dL (0.2-1)
[2023-07-30] MEDS: PIPERACILLIN/TAZOB 3.375 GM 3.375 GM in DEXTROSE 5%-WATER - 50 ML IVPB SCH (11:31)
[2023-07-30] MEDS ORDERED: ACETAMINOPHEN 1000 MG/100 ML BAG IVPB PRN (11:52)
[2023-07-30] MEDS: KCL 10 MEQ IVPB 10 MEQ/100 ML INFUS.BAG IVPB SCH (12:00)
[2023-07-30] MEDS: POTASSIUM CHLORIDE 20 MEQ in AMINO ACIDS 4.25%/D5W 1,000 ML IV SCH (14:11)
[2023-07-30] MEDS ORDERED: PIPERACILLIN/TAZOBACTAM 3.375 GM VIAL IVPB ONE (16:26)
[2023-07-31 10:10] LABS: POTASSIUM 3.1 mmol/L (3.5-5.1)
[2023-07-31 10:18] LABS: ALBUMIN 1.8 g/dl (3.4-5.0)
[2023-07-31 10:19] LABS: BLOOD UREA NITROGEN 17.5 mg/dL (7-18)
[2023-07-31 10:21] LABS: CREATININE 0.6 mg/dL (0.55-1.3)
[2023-07-31 10:22] LABS: PHOSPHOROUS 1.5 mg/dL (2.5-4.9)
[2023-07-31 10:23] LABS: BILIRUBIN,TOTAL 0.5 mg/dL (0.2-1); TOT PROT 5.6 g/dl (6.4-8.2)
[2023-07-31] MEDS: ALBUTEROL SO4 2.5/IPRATROPIUM 0.5 INH SOL 3 ML VIAL.NEB. NEB PRN (11:40)
[2023-07-31] MEDS: NAPH,MB-DB/K PH,MBDB POWDER PACKET PO ONE (12:26)
[2023-07-31] MEDS: POTASSIUM PHOSPHATE 30 MM in SODIUM CHLORIDE 500 ML IVPB ONE (14:25)
[2023-07-31] MEDS ORDERED: FAT EMULSION/OLIVE/SOY (CLINOLIPID) 250 ML EMULSION IV SCH (17:00)
[2023-07-31] MEDS: FAT EMULSION/OLIVE/SOY/PHOSPHO 250 ML IV SCH (21:25)
[2023-08-01 09:00] LABS: BASO % 0.2 % (0-2.0); EOS % 1.4 % (0-4.5); HEMATOCRIT 25.5 % (32.4-45.2); HEMOGLOBIN 8.6 GM/dL (10.7-15.3); LYMPH % 10.6 % (8-40); MCH 29.2 pg (25.7-33.7); MCHC 33.8 g/dl (32.0-36.0); MEAN CELL VOLUME 86.6 fl (80-96); MEAN PLT VOLUME 7.3 fl (7.5-11.1); MONO % 9.8 % (3.8-10.2); PLATELET COUNT 383 10^3/uL (134-434); RBC 2.95 M/mm3 (3.60-5.2); RDW 15.7 % (11.6-15.6); WHITE BLOOD COUNT 8.3 K/mm3 (4.0-10.0)
[2023-08-01 09:25] LABS: POTASSIUM 3.5 mmol/L (3.5-5.1)
[2023-08-01 09:27] LABS: CALCIUM 7.9 mg/dL (8.5-10.1)
[2023-08-01 09:28] LABS: ALBUMIN 1.7 g/dl (3.4-5.0); BLOOD UREA NITROGEN 15.2 mg/dL (7-18)
[2023-08-01 09:31] LABS: CREATININE 0.4 mg/dL (0.55-1.3)
[2023-08-01 09:32] LABS: TOT PROT 5.6 g/dl (6.4-8.2)
[2023-08-01 09:33] LABS: BILIRUBIN,TOTAL 0.4 mg/dL (0.2-1)
[2023-08-01] MEDS: ACETAMINOPHEN 500 MG TABLET (FP) PO PRN (15:38)
[2023-08-01] MEDS: KCL 10 MEQ IVPB 10 MEQ/100 ML INFUS.BAG IVPB SCH (16:05)
[2023-08-02] MEDS: DEXTROSE 50%-WATER 25 GM/50 ML DISP.SYRIN IVPUSH ONE (07:06)
[2023-08-02] MEDS: POTASSIUM CHLORIDE 20 MEQ in AMINO ACIDS 4.25%/D5W 1,000 ML IV SCH (19:28)
[2023-08-03 09:04] LABS: BASO % 0.3 % (0-2.0); EOS % 1.9 % (0-4.5); HEMATOCRIT 25.7 % (32.4-45.2); HEMOGLOBIN 8.6 GM/dL (10.7-15.3); LYMPH % 9.5 % (8-40); MCH 28.9 pg (25.7-33.7); MCHC 33.3 g/dl (32.0-36.0); MEAN CELL VOLUME 86.7 fl (80-96); MEAN PLT VOLUME 7.4 fl (7.5-11.1); MONO % 6.2 % (3.8-10.2); NEUT % 82.1 % (42.8-82.8); PLATELET COUNT 423 10^3/uL (134-434); RBC 2.96 M/mm3 (3.60-5.2); RDW 15.1 % (11.6-15.6); WHITE BLOOD COUNT 11.6 K/mm3 (4.0-10.0)
[2023-08-03 09:20] LABS: POTASSIUM 3.6 mmol/L (3.5-5.1)
[2023-08-03 09:25] LABS: BLOOD UREA NITROGEN 13.1 mg/dL (7-18)
[2023-08-03 09:26] LABS: ALBUMIN 1.7 g/dl (3.4-5.0)
[2023-08-03 09:28] LABS: CREATININE 0.4 mg/dL (0.55-1.3)
[2023-08-03 09:30] LABS: BILIRUBIN,TOTAL 0.5 mg/dL (0.2-1); TOT PROT 5.8 g/dl (6.4-8.2)
[2023-08-03] MEDS: ASPIRIN 300 MG SUPP.RECT RC SCH (12:30)
[2023-08-04] MEDS ORDERED: ACETAMINOPHEN 500 MG TABLET (FP) PO PRN (06:50)
[2023-08-04] MEDS: INSULIN (LEVEMIR) 100 UNITS/ML UNITS SQ SCH (07:25)
[2023-08-04] MEDS: INSULIN ASPART SLIDING SCALE (NOVOLOG) 1 VIAL SQ SCH (07:26)
[2023-08-04] MEDS: LEVOTHYROXINE SODIUM 100 MCG 5 ML VIAL IVPUSH SCH (07:26)
[2023-08-04 07:46] LABS: POTASSIUM 3.6 mmol/L (3.5-5.1)
[2023-08-04 07:48] LABS: CALCIUM 8.1 mg/dL (8.5-10.1)
[2023-08-04 07:49] LABS: ALBUMIN 1.6 g/dl (3.4-5.0); BLOOD UREA NITROGEN 14.2 mg/dL (7-18)
[2023-08-04 07:52] LABS: CREATININE 0.3 mg/dL (0.55-1.3)
[2023-08-04 07:53] LABS: BILIRUBIN,TOTAL 0.4 mg/dL (0.2-1)
[2023-08-04] MEDS: PANTOPRAZOLE SODIUM 40 MG VIAL IVPUSH SCH (10:07)
[2023-08-04] MEDS: PIPERACILLIN/TAZOB 3.375 GM 3.375 GM in DEXTROSE 5%-WATER - 50 ML IVPB SCH ×2 (10:07→17:29)
[2023-08-04] MEDS: ENOXAPARIN NA (PORCINE) 40 MG/0.4 ML DISP.SYRIN SQ SCH (10:07)
[2023-08-04] MEDS: ACETAMINOPHEN 1000 MG/100 ML BAG IVPB PRN (11:45)
[2023-08-04] MEDS: POTASSIUM CHLORIDE 20 MEQ in AMINO ACIDS 4.25%/D5W 1,000 ML IV SCH (17:14)
[2023-08-04] MEDS: ATORVASTATIN CA 40 MG TABLET (FP) PO SCH (21:54)
[2023-08-04] MEDS ORDERED: FAT EMULSION/OLIVE/SOY/PHOSPHO 250 ML IV SCH (22:00)
[2023-08-07] MEDS: ACETAMINOPHEN 1000 MG/100 ML BAG IVPB PRN (10:34)
[2023-08-07 12:54] LABS: HEMATOCRIT 28.2 % (32.4-45.2); HEMOGLOBIN 9.4 GM/dL (10.7-15.3); MCH 28.6 pg (25.7-33.7); MCHC 33.3 g/dl (32.0-36.0); MEAN CELL VOLUME 85.9 fl (80-96); MEAN PLT VOLUME 6.4 fl (7.5-11.1); PLATELET COUNT 631 10^3/uL (134-434); RBC 3.28 M/mm3 (3.60-5.2); RDW 15.2 % (11.6-15.6)
[2023-08-07 13:14] LABS: POTASSIUM 4.1 mmol/L (3.5-5.1)
[2023-08-07 13:16] LABS: BLOOD UREA NITROGEN 18.2 mg/dL (7-18); CALCIUM 8.6 mg/dL (8.5-10.1)
[2023-08-07 13:17] LABS: ALBUMIN 1.8 g/dl (3.4-5.0)
[2023-08-07 13:20] LABS: CREATININE 0.3 mg/dL (0.55-1.3)
[2023-08-07 13:21] LABS: BILIRUBIN,TOTAL 0.4 mg/dL (0.2-1); TOT PROT 6.4 g/dl (6.4-8.2)
[2023-08-09 07:46] LABS: POTASSIUM 4.3 mmol/L (3.5-5.1)
[2023-08-09 08:00] LABS: CALCIUM 8.7 mg/dL (8.5-10.1)
[2023-08-09 08:01] LABS: BLOOD UREA NITROGEN 21.5 mg/dL (7-18)
[2023-08-09 08:03] LABS: CREATININE 0.3 mg/dL (0.55-1.3)
[2023-08-09 08:05] LABS: BILIRUBIN,TOTAL 0.4 mg/dL (0.2-1); TOT PROT 6.8 g/dl (6.4-8.2)
[2023-08-09] MEDS: ACETAMINOPHEN 1000 MG/100 ML BAG IVPB PRN (16:06)
[2023-08-09] MEDS ORDERED: FAT EMULSIONS 250 ML IV SCH (22:00)
[2023-08-09] MEDS ORDERED: FAT EMULSIONS 20% 250 ML PREMIX INFUS.BAG IV SCH (22:00)
[2023-08-09] MEDS: FAT EMULSION/OLIVE/SOY/PHOSPHO 250 ML IV SCH (22:43)
[2023-08-10 07:23] LABS: EOS % 1.6 % (0-4.5); HEMATOCRIT 31.5 % (32.4-45.2); HEMOGLOBIN 10.7 GM/dL (10.7-15.3); LYMPH % 16.3 % (8-40); MCH 29.4 pg (25.7-33.7); MCHC 33.9 g/dl (32.0-36.0); MEAN CELL VOLUME 86.6 fl (80-96); MEAN PLT VOLUME 7.1 fl (7.5-11.1); MONO % 4.9 % (3.8-10.2); NEUT % 76.2 % (42.8-82.8); PLATELET COUNT 659 10^3/uL (134-434); RBC 3.63 M/mm3 (3.60-5.2); RDW 15.8 % (11.6-15.6); WHITE BLOOD COUNT 9.4 K/mm3 (4.0-10.0)
[2023-08-10 07:35] LABS: POTASSIUM 4.5 mmol/L (3.5-5.1)
[2023-08-10 07:38] LABS: INR 1.09 (0.83-1.09); PROTHROMBIN TIME (PATIENT) 12.3 SEC (9.7-13.0)
[2023-08-10 07:46] LABS: BLOOD UREA NITROGEN 18.9 mg/dL (7-18); CALCIUM 9.2 mg/dL (8.5-10.1)
[2023-08-10 07:47] LABS: ALBUMIN 2.2 g/dl (3.4-5.0); BILIRUBIN,TOTAL 0.4 mg/dL (0.2-1); TOT PROT 7.4 g/dl (6.4-8.2)
[2023-08-10 07:49] LABS: CREATININE 0.4 mg/dL (0.55-1.3)
[2023-08-10] MEDS: ACETAMINOPHEN 1000 MG/100 ML BAG IVPB ONE ×2 (21:50→21:57)
[2023-08-11] MEDS ORDERED: MIDAZOLAM HCL 2 MG/2 ML SINGLE DOSE VIAL ONE (12:58)
[2023-08-11] MEDS ORDERED: GLUCAGON 1 MG KIT ONE (12:58)
[2023-08-11] MEDS ORDERED: FENTANYL CITRATE/PF 50 MCG/ML VIAL ONE ×2 (12:58→13:39)
[2023-08-11] MEDS: FENTANYL CITRATE/PF 50 MCG/ML VIAL IVPUSH ONE ×2 (13:25→13:40)
[2023-08-11] MEDS: GLUCAGON 1 MG KIT IVPUSH ONE (13:27)
[2023-08-11] MEDS: ACETAMINOPHEN 1000 MG/100 ML BAG IVPB PRN (17:24)
[2023-08-11] MEDS: AMINO ACIDS 4.25%/D5W 1,000 ML IV SCH (18:18)
[2023-08-12] MEDS ORDERED: INSULIN ASPART SLIDING SCALE (NOVOLOG) 1 VIAL SQ ONE (06:45)
[2023-08-12] MEDS: IOHEXOL 180 MG/1 ML ML IT ONE (17:54)
[2023-08-13 08:13] LABS: CHLORIDE 103 mmol/L (98-107); POTASSIUM 3.8 mmol/L (3.5-5.1); SODIUM 133 mmol/L (136-145)
[2023-08-13 08:17] LABS: CALCIUM 8.7 mg/dL (8.5-10.1); GLUCOSE,RANDOM 299 mg/dL (74-106)
[2023-08-13 08:18] LABS: ALBUMIN 1.9 g/dl (3.4-5.0); ANION GAP 9 mmol/L (4-13); BLOOD UREA NITROGEN 26.7 mg/dL (7-18); CO2 21 mmol/L (21-32)
[2023-08-13 08:21] LABS: CREATININE 0.4 mg/dL (0.55-1.3); SGOT/AST 10 U/L (15-37)
[2023-08-13 08:22] LABS: BILIRUBIN,TOTAL 0.4 mg/dL (0.2-1); TOT PROT 6.7 g/dl (6.4-8.2)
[2023-08-13 08:23] LABS: ALK PHOS 150 U/L (45-117)
[2023-08-13 08:29] LABS: SGPT/ALT < 6 U/L (13-61)
[2023-08-13] MEDS: AMINO ACIDS 4.25%/D5W 2,000 ML IV SCH (11:20)
[2023-08-13 16:04] LABS: MAGNESIUM 1.7 mg/dL (1.8-2.4)
[2023-08-13 16:07] LABS: PHOSPHOROUS 1.8 mg/dL (2.5-4.9)
[2023-08-13] MEDS: COLLAGENASE CLOSTRIDIUM HIST. 30 GRAMS TUBE TP SCH (18:30)
[2023-08-13] MEDS: ATORVASTATIN CA 40 MG TABLET (FP) PO SCH (22:54)
[2023-08-13] MEDS: INSULIN (LEVEMIR) 100 UNITS/ML UNITS SQ SCH (22:54)
[2023-08-14] MEDS: INSULIN (NOVOLOG) ASPART 100 UNITS/ML 10ML VIAL SQ ONE (00:44)
[2023-08-14] MEDS: INSULIN ASPART SLIDING SCALE (NOVOLOG) 1 VIAL SQ SCH (06:23)
[2023-08-14] MEDS: LEVOTHYROXINE SODIUM 100 MCG 5 ML VIAL IVPUSH SCH (06:32)
[2023-08-14] MEDS: ENOXAPARIN NA (PORCINE) 40 MG/0.4 ML DISP.SYRIN SQ SCH (09:50)
[2023-08-14] MEDS ORDERED: PANTOPRAZOLE SODIUM 40 MG VIAL IVPUSH SCH (10:00)
[2023-08-14] MEDS: ASPIRIN 81 MG CHEWABLE TABLETS GT SCH (11:33)
[2023-08-14] MEDS: INSULIN (LEVEMIR) 100 UNITS/ML UNITS SQ SCH (22:07)
[2023-08-15] MEDS: LEVOTHYROXINE NA 50 MCG TABLET (FP) GT SCH (06:37)
[2023-08-15] MEDS: sitaGLIPtin PHOSPHATE 50 MG TABLET GT SCH (06:37)
[2023-08-15] MEDS: ACETAMINOPHEN 650 MG/20.3 ML ORAL SOLUTION (CUPS) PEG PRN (14:10)
[2023-08-16] MEDS: LISINOPRIL 10 MG TABLET GT SCH (09:50)
[2023-08-17 08:18] LABS: POTASSIUM 5.4 mmol/L (3.5-5.1)
[2023-08-17 08:23] LABS: ALBUMIN 1.8 g/dl (3.4-5.0); CALCIUM 8.7 mg/dL (8.5-10.1)
[2023-08-17 08:24] LABS: BLOOD UREA NITROGEN 23.5 mg/dL (7-18)
[2023-08-17 08:27] LABS: CREATININE 0.5 mg/dL (0.55-1.3)
[2023-08-17 08:29] LABS: BILIRUBIN,TOTAL 0.3 mg/dL (0.2-1); TOT PROT 6.6 g/dl (6.4-8.2)
[2023-08-17] MEDS: SODIUM ZIRCONIUM CYCLOSILICATE (LOKELMA) 5 GM PACKET GT ONE (09:50)
[2023-08-17] MEDS: POLYETHYLENE GLYCOL (HEALTHYLAX) 3350 17 GM PACKET GT SCH (11:38)
[2023-08-17] MEDS: SODIUM CHLORIDE 0.45% 1,000 ML IV SCH (12:17)
[2023-08-18 07:50] LABS: POTASSIUM 4.9 mmol/L (3.5-5.1)
[2023-08-18 07:58] LABS: ALBUMIN 1.8 g/dl (3.4-5.0); BLOOD UREA NITROGEN 22.3 mg/dL (7-18); CALCIUM 8.6 mg/dL (8.5-10.1)
[2023-08-18 08:01] LABS: CREATININE 0.4 mg/dL (0.55-1.3)
[2023-08-18 08:03] LABS: BILIRUBIN,TOTAL 0.3 mg/dL (0.2-1); TOT PROT 6.5 g/dl (6.4-8.2)
[2023-08-18 09:54] VITALS: BP 133/57; PULSE 79; RESP 18; TEMP 98.4
[2023-08-18] MEDS ORDERED: NYSTATIN POWDER 100,000 UNITS/GM - 15 GM TOPICAL POWDER TP SCH (12:15)
== END 2023-08-18 11:53 | DRG 480 ==
LOC: JER 10:07 → JERBED 11:55 → J6S 14:29 → JICU 07-26 00:57 → J5S 07-28 14:59 → J4W 08-03 16:37
PROVIDERS: ADMIT Internal Medicine; ATTEND Internal Medicine
PROC: 0DH67UZ Insertion of Feeding Device into Stomach, Via Natural or Artificial Opening (ICD-10-PCS; 2023-07-12)
PROC: 30233N1 Transfusion of Nonautologous Red Blood Cells into Peripheral Vein, Percutaneous Approach (ICD-10-PCS; 2023-07-18)
PROC: 0QSG35Z Reposition Right Tibia with External Fixation Device, Percutaneous Approach (ICD-10-PCS; 2023-07-19)
PROC: 0PSC35Z Reposition Right Humeral Head with External Fixation Device, Percutaneous Approach (ICD-10-PCS; 2023-07-19)
PROC: 0QS636Z Reposition Right Upper Femur with Intramedullary Internal Fixation Device, Percutaneous Approach (ICD-10-PCS; principal; 2023-07-19 07:30)
PROC: 5A1945Z Respiratory Ventilation, 24-96 Consecutive Hours (ICD-10-PCS; 2023-07-26)
PROC: 0BH17EZ Insertion of Endotracheal Airway into Trachea, Via Natural or Artificial Opening (ICD-10-PCS; 2023-07-26)
PROC: 4A133B1 Monitoring of Arterial Pressure, Peripheral, Percutaneous Approach (ICD-10-PCS; 2023-07-26)
PROC: 05HN33Z Insertion of Infusion Device into Left Internal Jugular Vein, Percutaneous Approach (ICD-10-PCS; 2023-07-26)
PROC: B544ZZA Ultrasonography of Left Jugular Veins, Guidance (ICD-10-PCS; 2023-07-26)
PROC: 4A133J1 Monitoring of Arterial Pulse, Peripheral, Percutaneous Approach (ICD-10-PCS; 2023-07-26)
DX: S72.141A Displaced intertrochanteric fracture of right femur, initial encounter for closed fracture (principal); E11.10 Type 2 diabetes mellitus with ketoacidosis without coma; L89.153 Pressure ulcer of sacral region, stage 3; J95.821 Acute postprocedural respiratory failure; T81.12XA Postprocedural septic shock, initial encounter; I63.9 Cerebral infarction, unspecified; S42.201A Unspecified fracture of upper end of right humerus, initial encounter for closed fracture; S82.241A Displaced spiral fracture of shaft of right tibia, initial encounter for closed fracture; J95.4 Chemical pneumonitis due to anesthesia; I69.351 Hemiplegia and hemiparesis following cerebral infarction affecting right dominant side; T81.44XA Sepsis following a procedure, initial encounter; E87.0 Hyperosmolality and hypernatremia; E46 Unspecified protein-calorie malnutrition; Z68.1 Body mass index [BMI] 19.9 or less, adult; M80.059A Age-related osteoporosis with current pathological fracture, unspecified femur, initial encounter for fracture; E87.20 Acidosis, unspecified; R64 Cachexia; W19.XXXA Unspecified fall, initial encounter; Y93.9 Activity, unspecified; Y92.89 Other specified places as the place of occurrence of the external cause; Y99.9 Unspecified external cause status; E11.9 Type 2 diabetes mellitus without complications; E03.9 Hypothyroidism, unspecified; S92.301A Fracture of unspecified metatarsal bone(s), right foot, initial encounter for closed fracture; E78.5 Hyperlipidemia, unspecified; F03.90 Unspecified dementia, unspecified severity, without behavioral disturbance, psychotic disturbance, mood disturbance, and anxiety; D64.9 Anemia, unspecified; E87.6 Hypokalemia; E83.39 Other disorders of phosphorus metabolism; E83.42 Hypomagnesemia
CPT/HCPCS: 36415; 36430; 36600; 49440; 70450-TC; 70486-TC; 70551-TC; 71045-TC-FY; 71046-TC-FY; 72125-TC; 72170-TC-FY; 73030-TC-RT-FY; 73200-TC-RT; 73502-TC-RT-FY; 73590-TC-RT-FY; 73610-TC-RT-FY; 73630-TC-RT-FY; 73700-TC-RT; 74018-TC-FY; 74230-TC-FY; 76000-TC-FY; 76775-TC; 80048; 80053; 80061; 81003; 82010; 82550; 82570; 82803; 82962; 83036; 83605; 83735; 83930; 83935; 84100; 84300; 84439; 84443; 84484; 85025; 85027; 85379; 85610; 85730; 86850; 86900; 86901; 86922; 87040; 87070; 87086; 87205; 87635; 92611-GN; 93005; 93010; 93306-TC; 93880-TC; 94002; 94010; 94640; 94760; 97162-GP; 99285-25; C1713; J0131; J3480; J3490; P9038; P9058

== ENCOUNTER 2023-12-10 10:17 | Inpatient (IN) | payer OTHER ==
[2023-12-10 10:32] VITALS: BMI 23.3
[2023-12-10] MEDS: NOREPINEPHRINE BITARTRATE 4,000 MCG in DEXTROSE 5%-WATER - 496 ML IV SCH (10:50)
[2023-12-10] MEDS ORDERED: NOREPINEPHRINE BITARTRATE 4 MG/4 ML ML IV ONE (10:51)
[2023-12-10] MEDS ORDERED: VANCOMYCIN 1,000 MG in DEXTROSE 5%-WATER - 250 ML IVPB ONE (10:51)
[2023-12-10 11:19] LABS: HEMATOCRIT 33.3 % (32.4-45.2); HEMOGLOBIN 10.2 GM/dL (10.7-15.3); MCH 28.5 pg (25.7-33.7); MCHC 30.8 g/dl (32.0-36.0); MEAN CELL VOLUME 92.5 fl (80-96); MEAN PLT VOLUME 7.7 fl (7.5-11.1); PLATELET COUNT 274 10^3/uL (134-434); RDW 17.3 % (11.6-15.6)
[2023-12-10 11:25] LABS: VENOUS BASE EXCESS -23.4 mmol/L (-2-2); VENOUS O2 SATURATION 62.1 % (70-80)
[2023-12-10 11:28] LABS: INR 1.6 (0.83-1.09); PROTHROMBIN TIME (PATIENT) 18.2 SEC (9.7-13.0)
[2023-12-10 11:30] LABS: VENOUS PH 6.717 (7.310-7.410)
[2023-12-10 11:38] LABS: POTASSIUM 4.8 mmol/L (3.5-5.1)
[2023-12-10 11:40] LABS: MAGNESIUM 2.5 mg/dL (1.8-2.4)
[2023-12-10 11:41] LABS: ALBUMIN 1.2 g/dl (3.4-5.0); BLOOD UREA NITROGEN 29.9 mg/dL (7-18); CALCIUM 10.7 mg/dL (8.5-10.1)
[2023-12-10 11:44] LABS: PHOSPHOROUS 8.9 mg/dL (2.5-4.9)
[2023-12-10 11:45] LABS: TOT PROT 7.1 g/dl (6.4-8.2)
[2023-12-10 11:46] LABS: BILIRUBIN,TOTAL 0.3 mg/dL (0.2-1)
[2023-12-10 11:51] VITALS: RESP 16
[2023-12-10 12:14] LABS: LACTIC ACID 14.8 mmol/L (0.4-2.0)
[2023-12-10 13:55] LABS: ANISOCYTOSIS 0; HELMET CELLS 0; HOWELL-JOLLY BODIES 0; MACROCYTOSIS 0; OVALOCYTE 0; ROULEAU 0; SICKELED CELLS 0; TARGET CELLS 0; TEAR DROP CELLS 0; TOXIC GRANULATION 0
[2023-12-10 13:58] VITALS: TEMP 96
[2023-12-10] MEDS: MEROPENEM 1 GM in DEXTROSE 5%-WATER 100 ML IVPB ONE (14:34)
[2023-12-10] MEDS: DOPAMINE 400 MG/D5W - 400,000 MCG/250 ML INFUS.BAG IVPB SCH (14:34)
[2023-12-10 14:41] VITALS: BP 70/24
[2023-12-10 14:48] LABS: ARTERIAL BLD GAS O2 SATURATION 90.4 % (95-98); ARTERIAL BLOOD GAS BASE EXCESS -24.3 mmol/L (-2-2); ARTERIAL BLOOD GAS PO2 95.1 mmHg (80-100)
[2023-12-10 14:52] LABS: ALLENS TEST POSITIVE; VENT MODE A/C; VENT RATE 16
[2023-12-10 14:54] LABS: ARTERIAL BLOOD GAS pH 6.894 (7.350-7.450)
[2023-12-10 15:04] VITALS: PULSE 105
[2023-12-10] MEDS: VANCOMYCIN/WATER FOR INJ (PEG) 1,000 MG/200 ML BAG IVPB ONE (16:20)
[2023-12-10] MEDS: MORPHINE SULFATE/0.9% NACL/PF 100 MG/100 ML BAG IVPB SCH (18:29)
[2023-12-10] MEDS: MEROPENEM 500 MG in DEXTROSE 5%-WATER 100 ML IVPB SCH ×2 (18:30→21:18)
[2023-12-11] MEDS ORDERED: PANTOPRAZOLE SODIUM 40 MG VIAL IVPUSH SCH (10:00)
== END 2023-12-10 21:17 | disposition expired | DRG 208 ==
LOC: JER 10:17 → JERBED 11:04 → JICU 12:15
PROVIDERS: ADMIT Internal Medicine Pulmonary Disease; ATTEND Internal Medicine Pulmonary Disease
PROC: 5A1935Z Respiratory Ventilation, Less than 24 Consecutive Hours (ICD-10-PCS; principal; 2023-12-10)
PROC: 0BH17EZ Insertion of Endotracheal Airway into Trachea, Via Natural or Artificial Opening (ICD-10-PCS; 2023-12-10)
DX: J96.01 Acute respiratory failure with hypoxia (principal); L89.154 Pressure ulcer of sacral region, stage 4; R57.0 Cardiogenic shock; E03.9 Hypothyroidism, unspecified; E11.622 Type 2 diabetes mellitus with other skin ulcer; E11.22 Type 2 diabetes mellitus with diabetic chronic kidney disease; I12.9 Hypertensive chronic kidney disease with stage 1 through stage 4 chronic kidney disease, or unspecified chronic kidney disease; N18.9 Chronic kidney disease, unspecified; E78.5 Hyperlipidemia, unspecified
CPT/HCPCS: 0241U-QW; 36415; 36600; 71045-TC-FY; 80053; 82010; 82803; 83605; 83690; 83735; 84100; 84484; 85025; 85610; 85730; 86850; 86900; 86901; 87040; 87106; 93005; 93010; 99291